=== PATIENT | female | born 1975 | race Caucasian/White ===

== ENCOUNTER 2021-04-29 12:10 | Emergency (ER) | payer OTHER ==
[~2021-04-29] VITALS: Ht 170.2 cm; Wt 80.3 kg
[~2021-04-29 12:10] MED LIST: ALBU90I INH; ALBU90OI; ALBU90OI INH; ALBU90OI6 INH; ALBU90OI61; ALBU90OI61 INH; ALPR.25 PO; AMIT25; AMOCLA250 PO; AMOX875 PO; ARIP10 PO; ARIP15; ARIP15 PO; ATOR10 PO; AZIT250 PO; AZIT500 PO; BUTASPCAF; CEPH500 PO; CETI10 PO; CIPR500 PO; CLIN300; CLIN300 PO; CLON.5; CLON1 PO; CLON2 PO; CODBUTASA PO; CRUTCH4 USE; CYCL10 PO; DIPH25; DIPH50 PO; DOCU100 PO; DOXY100 PO; ENJUVIA PO; ESCI10; ESCI10 PO; ESCI20 PO; ESTR2; ESTRADIOL; FLUCONAZOLE PO; GABA300; GABA300 PO; GABA600; GABA600 PO; GEMF600 PO; HALO1 PO; HALO5 PO; HYDACE10B PO; HYDACE5; HYDACE5 PO; HYDACE7.5; HYDACE7.5 PO; HYDGUAL120 PO; HYDHCL25; HYDMOR2 PO; HYDMOR4 PO; IBUP200; IBUP800; IBUP800 PO; INSDET100 SQ; INSLI100I; INSLI100I SC; INSU7030P; INSULANI; INSULANI SC; INSULIN LISPRO SQ; INSULISPEN SC; Januvia PO; K-Dur20 MEQ PO; KETO10 PO; LACT10SY PO; LATUDA80 MG PO; LEVSOD50; LISI5 PO; LITH300C; LITH300C PO; LITH300CA PO; LITH300ER; LITH450ER; LORA1 PO; MAGCHL64ER PO; MAGCIT300 PO; METF500 PO; METO100ER; METO100ER PO; METO50ER; NEBI10 PO; ONDA4 PO; ONDA4ODT MM; OXYACE5T PO; PRAV20 PO; PRED10 PO; PRED20 PO; PROACE100; PROM25 PO; PROP120ER PO; QUET100 PO; QUET300 PO; RAMI5; RANI150 PO; RISP3 PO; RXCYCL10 PO; RXHYDACE PO; RXHYDMOR2 PO; RXPROM25 PO; SERT50 PO; SULTRIDS PO; SUMA25; SUMA6I; TAMS.4ER PO; TOPI100 PO; TRAM50; TRAM50 PO; TRAZ150T57 PO; VALS80 PO; ZOLP10 PO; [UNRECOGNIZED DRUG - OTHER]; [UNRECOGNIZED DRUG - REMARK]
[2021-04-29 13:18] LABS: BASOPHILS ABSOLUTE AUTO 0.13 K/mm3 (0.00-0.23); BASOPHILS PERCENT AUTO 1 % (0-2); EOSINOPHILS ABSOLUTE AUTO 0.18 K/mm3 (0.00-0.68); EOSINOPHILS PERCENT AUTO 2 % (0-6); Hematocrit 38.9 % (33.0-51.0); Hemoglobin 12.6 g/dL (11.5-16.0); IMMATURE GRAN ABSOLUTE AUTO 0.48 K/mm3 (0.00-0.10); IMMATURE GRAN PERCENT AUTO 4 % (0-1); LYMPHOCYTES ABSOLUTE AUTO 2.73 K/mm3 (0.84-5.20); LYMPHOCYTES PERCENT AUTO 23 % (21-46); MONOCYTES ABSOLUTE AUTO 0.97 K/mm3 (0.16-1.47); MONOCYTES PERCENT AUTO 8 % (4-13); Mean Corpuscular HGB 25.6 pg (26.0-34.0); Mean Corpuscular HGB Conc 32.4 g/dL (31.5-36.5); Mean Corpuscular Volume 79 fL (80-100); Mean Platelet Volume 9.1 fL (9.1-12.4); NEUTROPHILS ABSOLUTE AUTO 7.47 K/mm3 (1.96-9.15); NEUTROPHILS PERCENT AUTO 63 % (41-73); Platelet Count 290 K/mm3 (150-400); Red Blood Cell Count 4.92 M/mm3 (3.80-5.20); White Blood Cell Count 11.96 K/mm3 (4.00-11.30)
[2021-04-29 13:42] LABS: Alanine Aminotransfer (ALT/SGP 26 U/L (12-78); Albumin, Blood 3.6 g/dL (3.4-5.0); Albumin/Globulin Ratio 0.9 (0.8-1.8); Alk Phos 190 U/L (50-136); Anion Gap 9 mmol/L (6-16); Aspartate Aminotrans (AST/SGOT 18 U/L (12-37); Bilirubin, Total 0.3 mg/dL (0.1-1.0); Blood Urea Nitrogen 14 mg/dL (8-24); Bun/Creatinine Ratio 17.3 (12.0-20.0); CO2, Blood 16 mmol/L (21-32); Chloride, Blood 112 mmol/L (98-108); Creatinine, Blood 0.81 mg/dL (0.40-1.00); Globulin, Blood 3.8 g/dL (2.2-4.0); Glomerular Filtration Rate >60 (60-); Glucose, Blood 260 mg/dL (70-99); Potassium, Blood 3.9 mmol/L (3.5-5.5); Sodium, Blood 137 mmol/L (136-145); Total Protein, Blood 7.4 g/dL (6.4-8.2)
[2021-04-29 13:52] LABS: Source, Urine Clean Catch
[2021-04-29 14:20] LABS: Bilirubin, Urine Neg (Neg); Blood, Urine Neg (Neg); Glucose Qualitative, Urine Neg (Neg); Ketones, Urine Neg (Neg); Leukocyte Esterase, Urine 2+ (Neg); Nitrite, Urine Neg (Neg); Protein, Urine Neg (Neg); Urobilinogen, Urine NORM (Normal); pH, Urine 6.5 (5.0-8.0)
[2021-04-29 14:37] LABS: Appearance, Urine Hazy (Clear); Color, Urine Pale Yellow (P-Yellow)
[2021-04-29 14:38] LABS: Bacteria Many /hpf; Red Blood Cells, Urine Not Seen /hpf (0-2); Squamous Epithelial Cells Few /hpf (Few); Transitional Epithelial Cells Rare /hpf (0-Rare)
[2021-04-29] MEDS ORDERED: Norco 5-325 Ta1 EACH PO (15:59)
[2021-04-29] MEDS ORDERED: Levaquin750 MG PO (15:59)
== END 2021-04-29 16:10 | disposition home or self-care (01) ==
LOC: ER 12:10
PROVIDERS: Physician Assistant
DX: N20.0 Calculus of kidney (principal); N39.0 Urinary tract infection, site not specified; I10 Essential (primary) hypertension; E11.9 Type 2 diabetes mellitus without complications; F17.210 Nicotine dependence, cigarettes, uncomplicated; Z88.6 Allergy status to analgesic agent; Z88.8 Allergy status to other drugs, medicaments and biological substances; Z79.4 Long term (current) use of insulin; Z79.899 Other long term (current) drug therapy
CPT/HCPCS: 36415; 74176; 80053; 81001; 85025; 87077; 87086; 87186; 99284-25

== ENCOUNTER 2021-08-10 13:28 | Inpatient (IN) | payer OTHER ==
[~2021-08-10] VITALS: Ht 165.1 cm; Wt 85.2 kg
[~2021-08-10 13:28] MED LIST changes: +Levaquin750 MG PO; +Norco 5-325 Ta1 EACH PO
[2021-08-10 14:24] LABS: Hematocrit 28.2 % (33.0-51.0); Mean Corpuscular HGB 25.6 pg (26.0-34.0); Mean Corpuscular HGB Conc 31.9 g/dL (31.5-36.5); Mean Corpuscular Volume 80 fL (80-100); Mean Platelet Volume 10.3 fL (9.1-12.4); Platelet Count 142 K/mm3 (150-400); RDW Coefficient Variation 14.3 % (11.7-14.2); RDW Standard Deviation 41.8 fL (35.1-46.3); Red Blood Cell Count 3.51 M/mm3 (3.80-5.20); White Blood Cell Count 11.22 K/mm3 (4.00-11.30)
[2021-08-10 14:38] LABS: Base Excess Venous -22.3 mmol/L; Bicarbonate Venous 9.3 mmol/L (24.0-30.0); PCO2 Venous 28.8 mmHg (38-42); PO2 Venous 152 mmHg (38-42); pH Blood Venous 7.06 (7.34-7.37)
[2021-08-10 14:44] LABS: Albumin, Blood 2.1 g/dL (3.4-5.0); Albumin/Globulin Ratio 0.6 (0.8-1.8); Bilirubin, Total 0.6 mg/dL (0.1-1.0); Bun/Creatinine Ratio 15.9 (12.0-20.0); Calcium, Blood 7.5 mg/dL (8.5-10.1); Creatinine, Blood 3.64 mg/dL (0.40-1.00); Globulin, Blood 3.7 g/dL (2.2-4.0); Potassium, Blood 4.4 mmol/L (3.5-5.5); Total Protein, Blood 5.8 g/dL (6.4-8.2)
[2021-08-10 14:45] LABS: BAND PERCENT MAN 40 % (0-8); BASOPHILS PERCENT MAN 0 % (0-2); EOSINOPHILS PERCENT MAN 0 % (0-6); LYMPHOCYTES % ATYPICAL MANUAL 2 % (0-0); LYMPHOCYTES PERCENT MAN 7 % (21-46); METAMYELOCYTE ABSOLUTE MAN 0.22 K/mm3 (0.00-0.00); METAMYELOCYTE PERCENT MAN 2 % (0-0); MONOCYTES ABSOLUTE MAN 0.44 K/mm3 (0.16-1.47); MONOCYTES PERCENT MAN 4 % (4-13); NEUTROPHILS ABSOLUTE MAN 9.53 K/mm3 (1.96-9.15); SEG NEUTROPHILS PERCENT MAN 45 % (41-73); TOTAL CELLS COUNTED 100
[2021-08-10 15:22] LABS: Thyroid Stimulating Hormone 0.485 uIU/mL (0.360-4.800)
[2021-08-10 15:47] LABS: Source, Urine Catheter
[2021-08-10 15:56] LABS: Bilirubin, Urine Neg (Neg); Blood, Urine 2+ (Neg); Color, Urine Amber (P-Yellow); Glucose Qualitative, Urine 3+ (Neg); Ketones, Urine Neg (Neg); Leukocyte Esterase, Urine 1+ (Neg); Nitrite, Urine Neg (Neg); Protein, Urine 3+ (Neg); Specific Gravity, Urine 1.015 (1.003-1.022); Urobilinogen, Urine NORM (Normal)
[2021-08-10 16:21] LABS: SARS-Cov-2 (COVID-19) PCR, MMC POSITIVE (NEGATIVE)
[2021-08-10 16:23] LABS: U Amphetamine Screen DETECTED; U Barbituate Screen Not Detected; U Benzodiazapine Screen Not Detected; U Buprenorphine Screen Not Detected; U Cannabinoids Screen Not Detected; U Cocaine Screen Not Detected; U Methadone Screen Not Detected; U Methamphetamine Screen DETECTED; U Opiates Screen Not Detected; U Oxycodone Screen Not Detected; U Phencyclidine Screen Not Detected; U Propoxyphene Screen Not Detected
[2021-08-10 16:30] LABS: Appearance, Urine Clear (Clear)
[2021-08-10 16:32] LABS: Bacteria Many /hpf; Red Blood Cells, Urine Rare /hpf (0-2); Squamous Epithelial Cells Few /hpf (Few)
[2021-08-10] MEDS ORDERED: Estrace Vagin42.5 GM VAG (18:29)
[2021-08-10] MEDS ORDERED: OLAN10A PO (19:16)
[2021-08-10] MEDS ORDERED: OMEP20ER PO (19:17)
[2021-08-10] MEDS ORDERED: BENZ1 PO (19:18)
[2021-08-10 20:26] LABS: Bun/Creatinine Ratio 17.8 (12.0-20.0); Calcium, Blood 7.1 mg/dL (8.5-10.1); Creatinine, Blood 3.37 mg/dL (0.40-1.00)
[2021-08-11 02:21] LABS: Bun/Creatinine Ratio 16.2 (12.0-20.0); Creatinine, Blood 3.77 mg/dL (0.40-1.00); Potassium, Blood 3.8 mmol/L (3.5-5.5)
--- NOTE | 2021-08-11 06:33 | NUR ---
END OF SHIFT SUMMARY: PATIENT TO 234 AT 2130. APPEARED THAT SHE COULD BE WAKING UP WHEN ROLLING INTO ROOM SHE WAS TRYING TO PULL AT HER CENTRAL LINE. PATIENT HAS BEEN SLEEPING AND NOT RESPONSIVE TO STIMULI. SHE WAS MOVING HEAD AWAY WHEN I TOUCHED HER FACE TO PAIN ATLEAST BUT IS NO LONGER DOING SO. NO RESPONSE TO DEEP SUCTIONING EITHER. PUPILS ARE 4/EQUAL/BRISK. PATIENT WAS ON 10 ON LEVO ON ADMISSION BUT IS NOW DOWN TO 5. PATIENT ALSO HAD GLUCOSE>300 SO SHE WAS STARTED ON AN INSULIN DRUP IN THE ED WHICH IS RUNNING AT 11 UNITS/HR. SHE HAS REMAINED IN NSR IN THE 70S. SHE STARTED ON 2L ON ADMISSION BUT HAS VERY VERY SLOWLY REQUIRED MORE O2. SHE WAS 5L FOR SEVERAL HOURS BUT THEN SUDDENLY DIPPED INTO 78-LOW 80S AND RT WAS CALLED. CECILIA-RT PLACED HER ON BIPAP 14/7 AND O2 IS NOW 98%. 750 BRENDEN CLEAR OUTPUT FROM RODRÍGUEZ. NO BMS. Q6 LABS ORDERED AND BEING SENT. SPOKE WITH JUAN-ENVIRONMENTAL MANAGEMENT SPECIALIST AND EXPRESSED MY CONCERNS ABOUT HER MENTATION AND LACK OF IMPROVEMENT SINCE BEING ADMITTED TO UNIT. PLAN IS FOR AN ABG THIS MORNING AND A HEAD CT THAT THEY WERE NOT ABLE TO COMPLETE YESTERDAY.
[2021-08-11 07:11] LABS: Hematocrit 27.7 % (33.0-51.0); Hemoglobin 9.1 g/dL (11.5-16.0); Mean Corpuscular HGB 25.9 pg (26.0-34.0); Mean Corpuscular HGB Conc 32.9 g/dL (31.5-36.5); Mean Corpuscular Volume 79 fL (80-100); Mean Platelet Volume 10.1 fL (9.1-12.4); Platelet Count 172 K/mm3 (150-400); RDW Coefficient Variation 14.6 % (11.7-14.2); RDW Standard Deviation 42.4 fL (35.1-46.3); Red Blood Cell Count 3.52 M/mm3 (3.80-5.20); White Blood Cell Count 12.88 K/mm3 (4.00-11.30)
[2021-08-11 07:20] LABS: Albumin, Blood 1.9 g/dL (3.4-5.0); Albumin/Globulin Ratio 0.5 (0.8-1.8); Bilirubin, Total 0.7 mg/dL (0.1-1.0); Bun/Creatinine Ratio 16.1 (12.0-20.0); Calcium, Blood 7.5 mg/dL (8.5-10.1); Creatinine, Blood 4.11 mg/dL (0.40-1.00); Globulin, Blood 3.9 g/dL (2.2-4.0); Potassium, Blood 4.2 mmol/L (3.5-5.5); Total Protein, Blood 5.8 g/dL (6.4-8.2)
[2021-08-11 07:38] LABS: BAND PERCENT MAN 15 % (0-8); BASOPHILS PERCENT MAN 0 % (0-2); EOSINOPHILS PERCENT MAN 0 % (0-6); LYMPHOCYTES ABSOLUTE MAN 0.25 K/mm3 (0.84-5.20); LYMPHOCYTES PERCENT MAN 2 % (21-46); METAMYELOCYTE ABSOLUTE MAN 0.12 K/mm3 (0.00-0.00); METAMYELOCYTE PERCENT MAN 1 % (0-0); MONOCYTES PERCENT MAN 0 % (4-13); MYELOCYTE ABSOLUTE MAN 0.38 K/mm3 (0.00-0.00); MYELOCYTE PERCENT MAN 3 % (0-0); SEG NEUTROPHILS PERCENT MAN 79 % (41-73); TOTAL CELLS COUNTED 100
--- NOTE | 2021-08-11 07:50 | NUR ---
ASSUMED CARE: PT RESTING IN BED ON BIPAP AT 14/7. BILATERAL WRIST RESTRAINTS IN PLACE. PT IS OBTUNDED AND NOT RESPONDING TO NOXIOUS STIMULI. CALL FROM CT STAFF TO DETERMINE IF WE CAN TAKE PT FOR TEST. CALL TO RT SINCE PT HAD BEEN PLACED ON BIPAP AT APPROXIMATELY 0600. RT SUGGESTS VBG FIRST TO DETERMINE WHICH WOULD BE MOST NEEDED. CALL TO WHO DECIDED ABG WOULD BE BETTER SINCE PT'S MENTAL STATUS WORSENED OVERNIGHT. RT AT BEDSIDE PERFORMING THIS AT THIS TIME.
[2021-08-11 08:23] LABS: PCO2 Arterial 38.5 mmHg (35-45); pH Blood Arterial 7.08 (7.35-7.45)
--- NOTE | 2021-08-11 10:40 | NUR ---
DR LEDBETTER CAME TO SEE PT AND IS AWARE OF ABG RESULTS. IS CONCERNED THAT PT WILL NEED TO BE INTUBATED AND FEELS PT IS TOO UNSTABLE FOR CT AT THIS TIME. CALL TO DR STEVENS WHO CAME AND EXAMINED PT AND AGREES THAT PT IS TOO UNSTABLE FOR CT AND PLANS TO DO CT AFTER INTUBATION. PT TRANSFERRED TO ICU 6 FOR CLOSER MONITORING AND INTUBATION. ATTEMPTED TO CALL PT'S SEAN TO GIVE HIM UPDATE BUT MAILBOX WAS FULL. INSULIN GTTS AND LEVOPHED RUNNING AT 10MCG/KG. PT SWITCHED FROM BIPAP TO CPAP WITH O2 AT 88% ON THIS.
--- NOTE | 2021-08-11 11:24 | NUR ---
GOT IN TOUCH WITH PT'S AND GAVE HIM AN UPDATE OF HER STATUS. HE IS AWARE THAT SHE IS VERY SICK AND IN INTENSIVE CARE UNIT, LIKELY BEING INTUBATED AT THIS TIME. MESSAGE LEFT FOR PRIMARY NURSE LETTING HER KNOW THAT UPDATE WAS GIVEN.
[2021-08-11 13:00] LABS: Bun/Creatinine Ratio 15.9 (12.0-20.0); Creatinine, Blood 4.28 mg/dL (0.40-1.00); Potassium, Blood 4.6 mmol/L (3.5-5.5)
--- NOTE | 2021-08-11 13:00 | NUR ---
TRANSFER TO ICU / INTUBATION: REPORT RECEIVED FROM MARTHA Simmons RN. PT ARRIVED TO ICU-06 AT APPROX 1030. PT TX TO ICU BED W/ SLIDER SHEET & 5 STAFF ASSIST. ON ARRIVAL, THE PT IS NOTED TO BE OBTUNDED, UNRESPONSIVE TO STIMULI. CPAP IN PLACE W/ RESPIRATIONS SHALLOW, DIFFICULTY OBTAINING ACCURATE SPO2 READING. ST W/ HR 110s, PT SEVERELY HYPOTENSIVE W/ SBP 50s AFTER TRANSFER, LEVOPHED TITRATED TO MAX DOSE & VASOPRESSIN STARTED W/ IMPROVEMENT NOTED TO BP - SEE FLOWSHEET FOR TITRATIONS. SPO2 READING 80-90% AT THIS TIME, DR STEVENS & RANDY Vincent, RT, AT BEDSIDE W/ THIS RN FOR INTUBATION. 1104 - 20 MG ETOMIDATE IVP 1106 - 80 MG ROCURONIUM IVP 1108 - 8.0 ETT PLACED USING GLIDESCOPE. NOTED TO BE 26.0 CM ATT. + COLOR CHANGE & BILATERAL BREATH SOUNDS AUSCULTATED. 1109 - VENT SETTINGS: AC/VC 26/340/12/100% W/ O2 SATS IMPROVING - SEE VS. 1114 - OGT PLACED. CXR COMPLETED, ETT & OGT POSITIONING HAS BEEN VERIFIED BY DR STEVENS. PLAN IS FOR PT TO HAVE CT HEAD ONCE MORE STABLE. INSULIN DRIP INFUSING - TITRATION IN FLOWSHEET. PROPOFOL STARTED FOR SEDATION.
[2021-08-11 13:54] LABS: Base Excess Venous -18.5 mmol/L; Bicarbonate Venous 11.1 mmol/L (24.0-30.0); PCO2 Venous 48.8 mmHg (38-42); PO2 Venous 194 mmHg (38-42); pH Blood Venous 7.02 (7.34-7.37)
[2021-08-11 16:09] LABS: Appearance, Urine Clear (Clear); Bilirubin, Urine Neg (Neg); Blood, Urine 4+ (Neg); Color, Urine Yellow (P-Yellow); Glucose Qualitative, Urine Neg (Neg); Ketones, Urine Neg (Neg); Leukocyte Esterase, Urine 1+ (Neg); Nitrite, Urine Neg (Neg); Protein, Urine 2+ (Neg); Specific Gravity, Urine 1.015 (1.003-1.022); Urobilinogen, Urine NORM (Normal)
[2021-08-11 16:37] LABS: Amorphous Light (0-Heavy)
[2021-08-11 16:38] LABS: Bacteria Mod /hpf; Hyaline Casts 0-2 /lpf (0-2); Renal Epithelial Rare /hpf (0-Rare); Squamous Epithelial Cells Few /hpf (Few)
[2021-08-11 17:51] LABS: Albumin, Blood 1.7 g/dL (3.4-5.0); Anion Gap 13 mmol/L (6-16); Blood Urea Nitrogen 69 mg/dL (8-24); Bun/Creatinine Ratio 15.9 (12.0-20.0); CO2, Blood 15 mmol/L (21-32); Calcium, Blood 6.9 mg/dL (8.5-10.1); Chloride, Blood 110 mmol/L (98-108); Creatinine, Blood 4.35 mg/dL (0.40-1.00); Glomerular Filtration Rate 11 (60-); Glucose, Blood 179 mg/dL (70-99); Phosphorus, Blood 5.3 mg/dL (2.5-4.9); Potassium, Blood 4.1 mmol/L (3.5-5.5); Sodium, Blood 138 mmol/L (136-145)
--- NOTE | 2021-08-11 18:24 | NUR ---
SHIFT SUMMARY: NO ACUTE CHANGES SINCE PRIOR UPDATES. SEDATION VIA PROPOFOL HAS BEEN PLACED ON STANDBY AT APPROX 1800 TO BETTER ASSESS MENTATION. THE PT REMAINS OBTUNDED W/ NO RESPONSE TO PAINFUL STIMULI. LS DIM IN BASES, VENT SETTINGS: AC/VC 26/340/12/75% W/ O2 SATS > 95%. MONITOR SHOWS SR W/ HR 80s, HYPOTENSIVE W/ LEVOPHED INFUSING AT 8 MCG/MIN & VASOPRESSIN INFUSING PER EMAR. OGT IN PLACE W/ NO OUTPUT NOTED TO LIS AFTER 4 HRS, OGT NOW CLAMPED. RODRÍGUEZ PATENT/ DRAINING YELLOW URINE. SKIN CONDITION OVERALL INTACT, Q2H REPOSITIONING TO MAINTAIN SKIN INTEGRITY. WILL CONTINUE TO MONITOR & REPORT OFF TO ONCOMING RN.
--- NOTE | 2021-08-11 19:30 | NUR ---
ASSESSMENT/ASSUMED CARE PT INTUBATED AND ON [facility] VENT. LUNGS DECREASED T/O. VENT SETTINGS AC/VC 26/340/12/75%. SPO2 98-100% DECREASED FIO2 TO 70%. HEART RATE REGULAR, BP STABLE ON LEVOPHED AT 8 MCQ/MIN AND VASOPRESSIN AT 0.04 UNIT/MIN VIA CENTRAL LINE TO RIGHT GROIN. BT+ABD SOFT. OG CLAMPED. RODRÍGUEZ CATH PATENT DRAINING SMALL AMT YELLOW URINE. PT ON LEVOPHED, VASOPRESSIN, NA BICARB AT 100 ML/HR, INSULIN AT 4 UNITS/HR, AND NS AT 10 ML/HR. BILAT SOFT WRIST RESTRAINTS.
--- NOTE | 2021-08-11 19:57 | NUR ---
review of pt history and needw [facility]. will follow for plan of care..
--- NOTE | 2021-08-11 20:43 | NUR ---
DR STEVENS UP DATE GIVEN TO DR STEVENS REGARDING URINE OUTPUT AND BLOOD GLUCOSE. RECEIVED ORDERS FOR LONG ACTING INSULIN THAN TURN INSULIN GTT OFF AN HOUR AFTER GIVING. PROPOFOL CONT ON STANDBY.
[2021-08-11 21:44] LABS: PCO2 Arterial 39.3 mmHg (35-45); PO2 Arterial 83.4 mmHg (80-100); pH Blood Arterial 7.16 (7.35-7.45)
--- NOTE | 2021-08-11 21:49 | NUR ---
CRITICAL ABG CALLED CRITICAL ABG PH 7.[address] DOUGLAS. NO NEW ORDERS. IMPROVED FROM PREVIOUS ABG.
--- NOTE | 2021-08-11 22:30 | NUR ---
INSULIN GTT STOPPED INSULIN GTT ONE HOUR AFTER GIVING LONG ACTING INSULIN. WILL RECHECK BLOOD GLUCOSE AT 2400.
--- NOTE | 2021-08-12 00:56 | NUR ---
FEVER TEMP 101.3, BLANKETS REMOVED AND TEMP IN ROOM DECREASED. CALL TO DR BROWN, ORDER RECEIVED FOR TYLENOL.
[2021-08-12 03:44] LABS: Hematocrit 25.7 % (33.0-51.0); Hemoglobin 8.6 g/dL (11.5-16.0); Mean Corpuscular HGB 25.6 pg (26.0-34.0); Mean Corpuscular HGB Conc 33.5 g/dL (31.5-36.5); Mean Corpuscular Volume 77 fL (80-100); Mean Platelet Volume 10.3 fL (9.1-12.4); NRBC ABSOLUTE 0.06 K/mm3 (0.00-0.02); NRBC Auto 0.4 /100 WBC (0.0-0.2); Platelet Count 158 K/mm3 (150-400); RDW Standard Deviation 41.7 fL (35.1-46.3); Red Blood Cell Count 3.36 M/mm3 (3.80-5.20); White Blood Cell Count 16.21 K/mm3 (4.00-11.30)
[2021-08-12 04:04] LABS: Calcium, Blood 6.2 mg/dL (8.5-10.1); Creatinine, Blood 4.3 mg/dL (0.40-1.00); Magnesium, Blood 1.6 mg/dL (1.6-2.4); Phosphorus, Blood 6.7 mg/dL (2.5-4.9); Potassium, Blood 4.4 mmol/L (3.5-5.5)
[2021-08-12 04:10] LABS: BAND PERCENT MAN 6 % (0-8); BASOPHILS PERCENT MAN 0 % (0-2); EOSINOPHILS PERCENT MAN 0 % (0-6); LYMPHOCYTES ABSOLUTE MAN 0.97 K/mm3 (0.84-5.20); LYMPHOCYTES PERCENT MAN 6 % (21-46); MONOCYTES ABSOLUTE MAN 0.64 K/mm3 (0.16-1.47); MONOCYTES PERCENT MAN 4 % (4-13); MYELOCYTE ABSOLUTE MAN 0.32 K/mm3 (0.00-0.00); MYELOCYTE PERCENT MAN 2 % (0-0); NEUTROPHILS ABSOLUTE MAN 14.26 K/mm3 (1.96-9.15); SEG NEUTROPHILS PERCENT MAN 82 % (41-73); TOTAL CELLS COUNTED 100
--- NOTE | 2021-08-12 04:52 | NUR ---
LABS CALL TO DR BROWN REGARDING BLOOD GLUCOSE 344. ORDER RECEIVED FOR MEDIUM SLIDIING SCALE INSULIN WITH HUMALOG AND 10 UNITS LANTUS NOW ONE TIME DOSE. PT ON NA BICAB GTT WITH DEXTROSE AND LEVOPHED IN DEXTROSE.
--- NOTE | 2021-08-12 06:11 | NUR ---
SHIFT SUMMARY PT CONT INTUBATED AND ON [facility] VENT. LUNGS DECREASED. FIO2 DECREASED DURING THE NIGHT. CURRENT VENT SETTINGS AC/VC 26/340/12/70%. PT ONLY RESPONDING TO PAINFUL STIMULI BY PULLING AWAY WITH ORAL CARE AND TURNING BY GRIMICING AND MOVING TONGUE. NOT FOLLOWING INSTRUCTIONS OR MOVING EXT. TEMP DURING THE NIGHT UP TO 101.7, MED WITH TYLENOL, BLANKETS REMOVED, TEMP IN ROOM DECREASED, AND ICE PACKS UNDER ARMS, BEHIND NECK AND IN GROIN. HEART RATE REGULAR. LEVOPHED TITRATED DOWN FROM 8 MCQ/MIN TO 6 MCQ/MIN TO KEEP MAP GREATER THAN 65. CENTRAL LINE TO RIGHT GROIN DRSG CHANGED, SITE CLEAR. PT ON NA BICARB AT 100 ML/HR, LEVOPHED AT 6 MCQ/MIN, VASOPRESSIN 0.04 UNITS/HR AND NS AT 10 ML/HR. INSULIN GTT STOPPED AFTER LONG ACTING INSULIN GIVEN. THIS AM BLOOD GLUCOSE 344 WITH LABS, CALLED DR BROWN. ADDITIONAL 10 UNITS LONG ACTING INSULIN GIVEN AND PT STARTED ON SLIDING SCALE INSULIN. REPORT TO ON COMING NURSE
--- NOTE | 2021-08-12 07:50 | NUR ---
ASSUMED CARE: REPORT RECEIVED FROM ANDREA Ayala RN & ANASTACIO Medina RN. ASSUMED CARE OF THIS PT AT APPROX 0700. SLIGHT GRIMACE TO ORAL CARE & PAINFUL STIMULI, GAG/ COUGH PRESENT. LS COARSE T/O, DIM IN BASES. VENT SETTINGS: AC/VC 26/340/12/60% W/ O2 SATS > 95%. MONITOR SHOWS SR W/ HR 70s, LEVOPHED & VASOPRESSIN INFUSING FOR HYPOTENSION - SEE FLOWSHEET FOR TITRATION. OGT IN PLACE, CLAMPED. RODRÍGUEZ PATENT/ DRAINING SCANT AMNTS YELLOW URINE, DIURESIS PER EMAR. SKIN CONDITION OVERALL INTACT, Q2H REPOSITIONING TO MAINTAIN SKIN INTEGRITY. WILL CONTINUE TO MONITOR & UPDATE NEEDED.
--- NOTE | 2021-08-12 09:25 | NUR ---
DR STEVENS: PROVIDER AT BEDSIDE TO EVAL PT THIS AM. PEEP DECREASED FROM 12.0 TO 8.0, FIO2 DECREASED TO 50%. CALCIUM REPLETION ORDERED. DISCUSSED DR MCGEE's ORDER FOR LASIX ADMIN THIS AM. NO OTHER ORDERS AT THIS TIME.
[2021-08-12 09:26] LABS: Base Excess Venous -13.8 mmol/L; PCO2 Venous 41.2 mmHg (38-42); pH Blood Venous 7.17 (7.34-7.37)
[2021-08-12 09:52] LABS: Bun/Creatinine Ratio 16.5 (12.0-20.0); Calcium, Blood 6.3 mg/dL (8.5-10.1); Creatinine, Blood 4.31 mg/dL (0.40-1.00); Potassium, Blood 3.9 mmol/L (3.5-5.5)
--- NOTE | 2021-08-12 12:41 | NUR ---
TUBE FEEDING: PIVOT 1.5 INITIATED THROUGH OGT AT 20 ML/HR W/ 30 ML H2O FLUSH Q4H PER DIETARY ORDERS. TF MAY BE ADVANCED TO 30 ML/HR AT APPROX 2000 TONIGHT, PUMP SET TO ALARM AT THAT TIME.
[2021-08-12 17:45] LABS: Glucose, Blood 478 mg/dL (70-99)
--- NOTE | 2021-08-12 18:39 | NUR ---
SHIFT SUMMARY: NO ACUTE CHANGES SINCE PRIOR UPDATES. THE PT IS NOT SEDATED. SHE IS SLIGHTLY MORE RESPONSIVE THIS EVENING, NOTED TO BE MOVING LEGS/ GRIMACING DURING ADLs OR PAINFUL STIMULUS. NOT PURPOSEFUL, NO EYE OPENING. LS COARSE/ DIM T/O, VENT SETTINGS: AC/VC 26/340/8/60% W/ O2 SATS > 90%. MONITOR SHOWS SR W/ HR 60-80s. VASOPRESSIN OFF THIS AFTERNOON, LEVOPHED CONTINUES INFUSING AT 4 MCG/MIN FOR HYPOTENSION. OGT IN PLACE W/ TUBE FEEDS INFUSING AT 20 ML/HR, MAY BE INCREASED TO GOAL RATE OF 30 ML/HR AT APPROX 2000, NO RESIDUALS. TEMP RODRÍGUEZ PATENT/ DRAINING DARK YELLOW URINE W/ DIURESIS PER EMAR - SEE I&O. SKIN CONDITION OVERALL CDI, Q2H REPOSITIONING TO MAINTAIN SKIN INTEGRITY. WILL CONTINUE TO MONITOR & REPORT OFF TO ONCOMING RN.
--- NOTE | 2021-08-12 19:00 | NUR ---
ASSUMED CARE ASSUMED CARE OF PATIENT. REMAINS INTUBATED- AC/VC 26/340/PEEP 8, FIO2 60%. BILATERAL SOFT WRIST RESTRAINTS IN PLACE. OG WITH PIVOT 1.5 AT 20CC/HR (GOAL IS 30CC/HR). MINIMAL SPONTANEOUS MOVEMENT NOTED OF HEAD. NO OTHER MOVEMENT NOTED AT THIS TIME. RODRÍGUEZ PATENT AND DRAINING TO GRAVITY. D5 WITH 150mEq OF SODIUM BICARB INFUSING AT 100CC/HR. LEVOPHED INFUSING AT 4MCG/MIN TO MAINTAIN MAP >65. MONITOR SHOWS NSR, RATE 70s.
[2021-08-12 21:40] LABS: Glucose, Blood 499 mg/dL (70-99)
[2021-08-13 04:18] LABS: Hematocrit 22.8 % (33.0-51.0); Hemoglobin 7.9 g/dL (11.5-16.0); Mean Corpuscular HGB 25.8 pg (26.0-34.0); Mean Corpuscular HGB Conc 34.6 g/dL (31.5-36.5); Mean Corpuscular Volume 75 fL (80-100); Mean Platelet Volume 10.4 fL (9.1-12.4); NRBC ABSOLUTE 0.08 K/mm3 (0.00-0.02); NRBC Auto 0.5 /100 WBC (0.0-0.2); Platelet Count 133 K/mm3 (150-400); RDW Standard Deviation 40.8 fL (35.1-46.3); Red Blood Cell Count 3.06 M/mm3 (3.80-5.20); White Blood Cell Count 15.97 K/mm3 (4.00-11.30)
[2021-08-13 04:42] LABS: BAND PERCENT MAN 6 % (0-8); BASOPHILS PERCENT MAN 0 % (0-2); EOSINOPHILS PERCENT MAN 0 % (0-6); LYMPHOCYTES ABSOLUTE MAN 0.95 K/mm3 (0.84-5.20); LYMPHOCYTES PERCENT MAN 6 % (21-46); METAMYELOCYTE ABSOLUTE MAN 0.15 K/mm3 (0.00-0.00); METAMYELOCYTE PERCENT MAN 1 % (0-0); MONOCYTES ABSOLUTE MAN 0.31 K/mm3 (0.16-1.47); MONOCYTES PERCENT MAN 2 % (4-13); MYELOCYTE ABSOLUTE MAN 0.47 K/mm3 (0.00-0.00); MYELOCYTE PERCENT MAN 3 % (0-0); NEUTROPHILS ABSOLUTE MAN 14.05 K/mm3 (1.96-9.15); SEG NEUTROPHILS PERCENT MAN 82 % (41-73); TOTAL CELLS COUNTED 100
[2021-08-13 04:48] LABS: Magnesium, Blood 1.8 mg/dL (1.6-2.4)
[2021-08-13 04:52] LABS: Anion Gap 15 mmol/L (6-16); Blood Urea Nitrogen 81 mg/dL (8-24); CO2, Blood 21 mmol/L (21-32); Calcium, Blood 5.5 mg/dL (8.5-10.1); Chloride, Blood 99 mmol/L (98-108); Creatinine, Blood 3.85 mg/dL (0.40-1.00); Glomerular Filtration Rate 13 (60-); Glucose, Blood 485 mg/dL (70-99); Phosphorus, Blood 6.1 mg/dL (2.5-4.9); Sodium, Blood 135 mmol/L (136-145); Triglycerides 333 mg/dL (30-160)
--- NOTE | 2021-08-13 06:33 | NUR ---
SHIFT SUMMARY NO ACUTE CHANGES. PROPOFOL STARTED DURING NOC FOR VENT TOLERANCE- NOW INFUSING AT 35MCG/KG/MIN. MINIMAL SPONTANEOUS MOVEMENT NOTED. NOT FOLLOWING ANY COMMANDS. VENT SETTINGS: AC/VC 26/340/PEEP 8. FIO2 NOW AT 55%. RR 26-36. LEVOPHED HAS BEEN OFF T/O MOST OF SHIFT. TMAX 100.2F. OG WITH PIVOT 1.5 AT GOAL RATE OF 30CC/HR. RESIDUALS 10-20cc. RODRÍGUEZ PATENT AND DRAINING TO GRAVITY. BICARB GTT DC'D THIS AM PER DR. MCGEE. KCL IVPB AND CALCIUM CHLORIDE IVPB STARTED PER ORDER. CBGs HAVE BEEN CONSISTENTLY HIGH T/O SHIFT- HIGH SLIDING SCALE Q4H. WILL REPORT TO ONCOMING RN WHEN AVAILABLE.
--- NOTE | 2021-08-13 08:00 | NUR ---
DR. SOTOMAYOR UPDATED ON PATIENT STATUS. INFORMED THAT PATIENT HAD TMAX OF 100.2 DEGREES FAHRENHEIT. INFORMED THAT HEMOGLOBIN DECREASED TO 7.9 FROM 8.6 THIS AM. INFORMED THAT POTASSIUM 3.0 THIS AM AND PATIENT RECEIVING 40 MEQ KCL REPLACEMENT. INFORMED THAT CALCIUM 5.5 AND RECEIVED 2 G CALCIUM THIS AM. INFORMED THAT KIDNEY LABS WORSENING. INFORMED THAT GLUCOSE IN THE 400S, BUT THAT BICARB IN DEXTROSE DC'D THIS AM BY DR. MCGEE. INFORMED THAT PROPOFOL INITIATED ON PATIENT ON DIRECTORY OPERATOR NOT BECAUSE PATIENT WAKING UP BUT FOR STACKING BREATHS AND INCREASED RR. NO ORDERS OBTAINED AT THIS TIME.
--- NOTE | 2021-08-13 09:05 | NUR ---
INITIAL ASSESSMENT PATIENT INTUBATED AND ON SEDATION. PATIENT UNRESPONSIVE. PATIENT PLACED ON PROPOFOL ON OTOLARYNGOLOGY REP FOR BREATH STACKING AND INCREASED RR. PUPILS 5+ AND REACT TO LIGHT. PUPILS FIXED IN A DOWNWARD GAZE. PATIENT AFEBRILE. NO SIGNS OF PAIN NOTED. PATIENT ON AC/VC 26, 340, PEEP 8 AND 55% FIO2. LUNGS COARSE THROUGHOUT. ETT 8.0 AND 26 AT THE TEETH. RR 20S TO 30S. PATIENT IN SR, HR IN THE 60S. SBP 70S TO 90S. LEVOPHED ON SB WHEN BEGAN SHIFT. LEVOPHED NOW AT 3 MCG/ MINUTE. 1+ EDEMA NOTED TO L HAND. ABD SOFT WITH NORMOACTIVE BS NOTED. PIVOT 1.5 INFUSING AT GOAL RATE OF 30 MLS/ HOUR AND 30 ML WATER FLUSH Q4H. RESIDUAL OF 35 MLS OBTAINED AND REINSTILLED THIS AM. DATE OF LAST BM UNKNOWN. PRN MOM GIVEN. RODRÍGUEZ DRAINING DARK YELLOW COLORED URINE. SKIN OVERALL DRY AND INTACT. SOLES OF FEET DIRTY AND CALLUSED. PROPOFOL INFUSING AT 30 MCG/ KG/ MINUTE, NS TKO. PATIENT RECEIVING SCHEDULED UNASYN. BLOOD SUGAR 478 THIS AM; COVERAGE GIVEN. BICARB IN DEXTROSE DC'D THIS AM. Q4 BLOOD SUGAR CHECKS. BED LOW. WILL CONTINUE TO MONITOR PATIENT FREQUENTLY THROUGHOUT SHIFT.
[2021-08-13 13:44] LABS: Albumin, Blood 1.6 g/dL (3.4-5.0); Anion Gap 15 mmol/L (6-16); Blood Urea Nitrogen 84 mg/dL (8-24); Bun/Creatinine Ratio 22.4 (12.0-20.0); CO2, Blood 22 mmol/L (21-32); Calcium, Blood 6.2 mg/dL (8.5-10.1); Chloride, Blood 99 mmol/L (98-108); Creatinine, Blood 3.75 mg/dL (0.40-1.00); Glomerular Filtration Rate 13 (60-); Glucose, Blood 538 mg/dL (70-99); Phosphorus, Blood 5.1 mg/dL (2.5-4.9); Potassium, Blood 3.1 mmol/L (3.5-5.5); Sodium, Blood 136 mmol/L (136-145)
--- NOTE | 2021-08-13 14:00 | NUR ---
PATIENT AFEBRILE. PROPOFOL ON SB FOR SEDATION VACATION. HR IN THE 60S. SBP IN THE LOW 100S. LEVOPHED ON SB AT THIS TIME. PATIENT ON AC 26, TV 340, PEEP 8 AND 50% FIO2. RR IN THE 20S. LUNGS COARSE WITH RHONCHI THROUGHOUT. PIVOT 1.5 INFUSING AT NEW GOAL RATE OF 25 MLS/ HOUR. BLOOD SUGAR 538. INSULIN DRIP STARTED AT 5 UNITS/ HOUR. PATIENT APPEARS WITHOUT PAIN OR DISTRESS AT THIS TIME. NO OTHER ACUTE CHANGES TO NOTE ON AT THIS TIME. WILL CONTINUE TO MONITOR.
[2021-08-13 15:45] LABS: Glucose, Blood 525 mg/dL (70-99)
--- NOTE | 2021-08-13 16:10 | NUR ---
PATIENT AFEBRILE. PROPOFOL REMAINS ON SB. PATIENT IS NOT RESPONSIVE. TEMP OF 99.1 DEGREES FAHRENHEIT. HR IN THE 60S. SBP 120S TO 130S. LEVOPHED REMAINS OFF. INSULIN DRIP AT 10 UNITS/ HOUR. FIO2 AT 40%. NO OTHER ACUTE CHANGES AT THIS TIME. WILL CONTINUE TO MONITOR.
--- NOTE | 2021-08-13 18:44 | NUR ---
SHIFT SUMMARY PATIENT REMAINED INTUBATED. PATIENT ON PROPOFOL AT BEGINNING OF SHIFT AT 30 MCG/ KG/ MINUTE. PATIENT PLACED ON SB AROUND 1330. NEURO STATUS HAS REMAINED UNCHANGED. PATIENT CONTINUES TO BE UNRESPONSIVE. PUPILS CONTINUE TO REACT TO LIGHT. PUPILS GAZING STRAIGHT AHEAD WHEN EYELIDS OPENED BUT THEN ABRUPTLY TURN TO A DOWNWARD GAZE. PATIENT HAD TMAX OF 99.6 DEGREES FAHRENHEIT. LUNGS REMAINED COARSE WITH RHONCHI. VENT SETTINGS 26, TV 340, PEEP 8 AND FIO2 HAS BEEN DECREASED FROM 55% TO 40% FIO2. PATIENT REMAINED IN SR, HR 60S TO 70S. SBP 70S TO 130S. LEVOPHED ON SB AT THIS TIME AND AT MAX WAS AT 3 MCG/ MINUTE. TF GOAL DECREASED FROM 30 TO 25 MLS/ HOUR. NO BM THIS SHIFT. PRN MOM GIVEN THIS SHIFT. RODRÍGUEZ DRAINED 1000 MLS OF DARK YELLOW COLORED URINE. NO CHANGES TO SKIN. PATIENT REPOSITIONED Q2H. PROPOFOL REMAINS AT SB. LEVOPHED AT SB. NS TKO. BLOOD SUGARS INCREASED TO 538 THIS SHIFT. INSULIN DRIP STARTED AND IS NOW INFUSING AT 14 UNITS/ HOUR. LAST BLOOD SUGAR 435. PATIENT RECEIVED TOTAL OF 120 MEQ KCL PT AND 40 MEQ KCL IV FOR POTASSIUM OF 3.0 AND 3.1 THIS SHIFT. PATIENT RECEIVED 2 G OF CALCIUM FOR LEVEL OF 5.5 THIS AM. PATIENT RECEIVED PARTIAL BATH THIS SHIFT. PATIENT APPEARS COMFORTABLE AT THIS TIME. REPORT WILL BE GIVEN TO [facility] BACKER UP NURSE SHORTLY.
[2021-08-14 04:08] LABS: Hematocrit 25.1 % (33.0-51.0); Hemoglobin 8.6 g/dL (11.5-16.0); Mean Corpuscular HGB 25.5 pg (26.0-34.0); Mean Corpuscular HGB Conc 34.3 g/dL (31.5-36.5); Mean Corpuscular Volume 75 fL (80-100); Mean Platelet Volume 10.3 fL (9.1-12.4); NRBC ABSOLUTE 0.11 K/mm3 (0.00-0.02); NRBC Auto 0.5 /100 WBC (0.0-0.2); Platelet Count 134 K/mm3 (150-400); Red Blood Cell Count 3.37 M/mm3 (3.80-5.20); White Blood Cell Count 21.31 K/mm3 (4.00-11.30)
[2021-08-14 04:35] LABS: Bun/Creatinine Ratio 26.5 (12.0-20.0); Calcium, Blood 6.2 mg/dL (8.5-10.1); Creatinine, Blood 3.36 mg/dL (0.40-1.00); Magnesium, Blood 2.1 mg/dL (1.6-2.4); Phosphorus, Blood 4.5 mg/dL (2.5-4.9); Potassium, Blood 3.5 mmol/L (3.5-5.5)
[2021-08-14 04:57] LABS: BAND PERCENT MAN 1 % (0-8); BASOPHILS PERCENT MAN 0 % (0-2); EOSINOPHILS PERCENT MAN 0 % (0-6); LYMPHOCYTES ABSOLUTE MAN 0.42 K/mm3 (0.84-5.20); LYMPHOCYTES PERCENT MAN 2 % (21-46); METAMYELOCYTE ABSOLUTE MAN 0.21 K/mm3 (0.00-0.00); METAMYELOCYTE PERCENT MAN 1 % (0-0); MONOCYTES ABSOLUTE MAN 0.21 K/mm3 (0.16-1.47); MONOCYTES PERCENT MAN 1 % (4-13); MYELOCYTE ABSOLUTE MAN 1.06 K/mm3 (0.00-0.00); MYELOCYTE PERCENT MAN 5 % (0-0); NEUTROPHILS ABSOLUTE MAN 19.39 K/mm3 (1.96-9.15); SEG NEUTROPHILS PERCENT MAN 90 % (41-73); TOTAL CELLS COUNTED 100
--- NOTE | 2021-08-14 05:43 | NUR ---
SHIFT SUMMAARY PT REMAINS INUBATED, VENT SETTINGS 26/300/8/45%. BILAT LUNGS HAVE INSPIRATORY AND EXPIRATORY WHEEZE. PT RECEIVED TWO DUONEB WITHOUT IMPROVEMENT. PT RECEIVING INSULIN GTT AT 6 UNITS/HR WITH Q1 CBG CHECKS. LEVOPHED AND PROPOFOL ARE ON STANDBY. PT REMAINS UNRESPONSIVE BUT DOES HAVE A GAG REFLEX. TUBE FEEDING INFUSING AT GOAL RATE. RODRÍGUEZ REMAINS IN PLACE WITH SHIFT OUTPUT OF 1700ML. WILL REPORT TO ONCOMING RN.
--- NOTE | 2021-08-14 07:15 | NUR ---
PT CARE ASSUMED AFTER AM REPORT. DYSCONJUGATE GAZE NOTED. MD INFORMED. PT NOT RESPNSIVE, NO GAG. INFORMED.
--- NOTE | 2021-08-14 17:59 | NUR ---
PT STABLE THROUGH THE DAY. NO SEDATION AND PT DOES NOT RESPOND TO PAIN OR OPEN EYES. EYES DYSCONGIGATE. CT NEGATIVE. STARTED ON HIGH SSI. FAMILY UPDATED.
[2021-08-15 04:51] LABS: Hematocrit 24.8 % (33.0-51.0); Hemoglobin 8.6 g/dL (11.5-16.0); Mean Corpuscular HGB 25.7 pg (26.0-34.0); Mean Corpuscular HGB Conc 34.7 g/dL (31.5-36.5); Mean Corpuscular Volume 74 fL (80-100); Mean Platelet Volume 11.7 fL (9.1-12.4); NRBC Auto 0.5 /100 WBC (0.0-0.2); Platelet Count 126 K/mm3 (150-400); RDW Coefficient Variation 15.3 % (11.7-14.2); RDW Standard Deviation 40.9 fL (35.1-46.3); Red Blood Cell Count 3.35 M/mm3 (3.80-5.20); White Blood Cell Count 21.92 K/mm3 (4.00-11.30)
[2021-08-15 05:14] LABS: BAND PERCENT MAN 11 % (0-8); BASOPHILS PERCENT MAN 0 % (0-2); EOSINOPHILS PERCENT MAN 0 % (0-6); LYMPHOCYTES ABSOLUTE MAN 0.65 K/mm3 (0.84-5.20); LYMPHOCYTES PERCENT MAN 3 % (21-46); MONOCYTES ABSOLUTE MAN 0.65 K/mm3 (0.16-1.47); MONOCYTES PERCENT MAN 3 % (4-13); MYELOCYTE ABSOLUTE MAN 0.65 K/mm3 (0.00-0.00); MYELOCYTE PERCENT MAN 3 % (0-0); NEUTROPHILS ABSOLUTE MAN 19.94 K/mm3 (1.96-9.15); SEG NEUTROPHILS PERCENT MAN 80 % (41-73); TOTAL CELLS COUNTED 100
[2021-08-15 05:23] LABS: Anion Gap 11 mmol/L (6-16); Blood Urea Nitrogen 85 mg/dL (8-24); Bun/Creatinine Ratio 40.5 (12.0-20.0); CO2, Blood 24 mmol/L (21-32); Calcium, Blood 6.6 mg/dL (8.5-10.1); Chloride, Blood 114 mmol/L (98-108); Glomerular Filtration Rate 25 (60-); Glucose, Blood 301 mg/dL (70-99); Phosphorus, Blood 3.1 mg/dL (2.5-4.9); Potassium, Blood 3.3 mmol/L (3.5-5.5); Sodium, Blood 149 mmol/L (136-145); Vancomycin, Random 19.3 ug/mL
--- NOTE | 2021-08-15 06:38 | NUR ---
SHIFT SUMMARY PT REMAINS INTUBATED, VENT SETTINGS 26/340/6/50%. THROUGHOUT SHIFT PT HAD MODERATE INCREASE IN THICK PORTER SECRETIONS. PT STILL HAS WHEEZES DESPITE DUONEB GIVEN BY RT. PT REMAINS UNRESPONSIVE. PUPILS ARE 4MM AND SLUGGISH. R EYE HAS UPWARD/OUTWARD GAZE. PT OCCASIONALLY COUGHS. PROPOFOL RESTARTED AT 0630 FOR COMFORT AT 10MCG/KG/MIN. TUBE FEEDING INFUSING AT GOAL RATE WITH MINIMAL RESIDUALS. BOWEL TONES REMAIN HYPOACTIVE. RODRÍGUEZ REMAINS IN PLACE, SHIFT OUTPUT OF 1650ML. CBGS REMAIN IN 300S. WILL REPORT TO ONCOMING RN.
--- NOTE | 2021-08-15 07:15 | NUR ---
PT CARE ASSUMED AFTER NIGHTSHIFT RN REPORT. PT INTUBATED, LIGHT SEDATION FOR VENT COMPLIANCE, NO GAG. EYES UPWARD GAZE, SLIGHTLY AWAY FROM MIDLINE. MD AWARE.
[2021-08-15 17:55] LABS: Bun/Creatinine Ratio 45.3 (12.0-20.0); Creatinine, Blood 1.61 mg/dL (0.40-1.00); Potassium, Blood 3.3 mmol/L (3.5-5.5)
--- NOTE | 2021-08-15 18:32 | NUR ---
AROUND 1500 PT GAZE MORE MIDLINE. GAG PRESENT. TACHYPNIC. TURNED ON PROPOFOL TO 35 FOR VENT SYNCHRONY. FEBRILE. ONE DOSE OF PEN TYLEONAL BROKE FEVER. FAMILY UPDATED
--- NOTE | 2021-08-15 20:00 | NUR ---
ASSUMED CARE OF PT AT 1915. REPORT RECEIVED. PT PRESENTS IN BED. INTUBATED. AC 26, Tv 340, PEEP 6, FIO2 6. PT MAINTAINS SAURATIONS > 90 PERCENT. HAS 101.5 TEMP. WILL REVIEW CHART AND PLAN OF CARE FOR THIS PT.
--- NOTE | 2021-08-16 | NUR ---
SPOKE WITH DR LEWIS CONCERNING PT'S FEVER NOT RESPONDING MUCH TO TYLENOL, AND ORDER RECEIVED FOR IBUPROFEN TO BE GIVEN WELL. PENDING RESULTS.
[2021-08-16 03:49] LABS: BASOPHILS ABSOLUTE AUTO 0.18 K/mm3 (0.00-0.23); BASOPHILS PERCENT AUTO 1 % (0-2); Hematocrit 27.1 % (33.0-51.0); Hemoglobin 9.1 g/dL (11.5-16.0); Mean Corpuscular HGB 25.4 pg (26.0-34.0); Mean Corpuscular HGB Conc 33.6 g/dL (31.5-36.5); Mean Corpuscular Volume 76 fL (80-100); NRBC ABSOLUTE 0.11 K/mm3 (0.00-0.02); NRBC Auto 0.4 /100 WBC (0.0-0.2); Platelet Count 119 K/mm3 (150-400); RDW Coefficient Variation 15.8 % (11.7-14.2); RDW Standard Deviation 43.4 fL (35.1-46.3); Red Blood Cell Count 3.58 M/mm3 (3.80-5.20); White Blood Cell Count 25.31 K/mm3 (4.00-11.30)
[2021-08-16 03:52] LABS: EOSINOPHILS ABSOLUTE AUTO 0.09 K/mm3 (0.00-0.68); EOSINOPHILS PERCENT AUTO 0 % (0-6); IMMATURE GRAN ABSOLUTE AUTO 3.44 K/mm3 (0.00-0.10); IMMATURE GRAN PERCENT AUTO 14 % (0-1); LYMPHOCYTES ABSOLUTE AUTO 0.93 K/mm3 (0.84-5.20); LYMPHOCYTES PERCENT AUTO 4 % (21-46); MONOCYTES ABSOLUTE AUTO 0.27 K/mm3 (0.16-1.47); MONOCYTES PERCENT AUTO 1 % (4-13); NEUTROPHILS PERCENT AUTO 81 % (41-73)
[2021-08-16 04:08] LABS: BAND PERCENT MAN 6 % (0-8); BASOPHILS PERCENT MAN 0 % (0-2); EOSINOPHILS ABSOLUTE MAN 0.25 K/mm3 (0.00-0.68); EOSINOPHILS PERCENT MAN 1 % (0-6); LYMPHOCYTES ABSOLUTE MAN 0.75 K/mm3 (0.84-5.20); LYMPHOCYTES PERCENT MAN 3 % (21-46); METAMYELOCYTE ABSOLUTE MAN 1.77 K/mm3 (0.00-0.00); METAMYELOCYTE PERCENT MAN 7 % (0-0); MONOCYTES PERCENT MAN 0 % (4-13); MYELOCYTE ABSOLUTE MAN 0.25 K/mm3 (0.00-0.00); MYELOCYTE PERCENT MAN 1 % (0-0); NEUTROPHILS ABSOLUTE MAN 22.27 K/mm3 (1.96-9.15); SEG NEUTROPHILS PERCENT MAN 82 % (41-73); TOTAL CELLS COUNTED 100
[2021-08-16 04:13] LABS: Anion Gap 5 mmol/L (6-16); Blood Urea Nitrogen 64 mg/dL (8-24); Bun/Creatinine Ratio 44.4 (12.0-20.0); CO2, Blood 28 mmol/L (21-32); Calcium, Blood 7.2 mg/dL (8.5-10.1); Chloride, Blood 121 mmol/L (98-108); Creatinine, Blood 1.44 mg/dL (0.40-1.00); Glomerular Filtration Rate 39 (60-); Glucose, Blood 257 mg/dL (70-99); Magnesium, Blood 1.6 mg/dL (1.6-2.4); Phosphorus, Blood 2.7 mg/dL (2.5-4.9); Potassium, Blood 3.1 mmol/L (3.5-5.5); Sodium, Blood 154 mmol/L (136-145); Vancomycin, Random 18.2 ug/mL
--- NOTE | 2021-08-16 06:30 | NUR ---
PT HAS MAINTAINED SATURATIONS > 90 PERCENT. FEVER REMAINS 101.5 TO 102.2. MINIMINAL RESIDUALS FROM OGT. WILL CONTINUE TO MONITOR PT, AND WILL REPORT OFF TO ONCOMING RN.
--- NOTE | 2021-08-16 07:15 | NUR ---
PT CARE ASSUMED AFTER STENCIL INSPECTOR RN REPORT. PT SEDATED. GAGS/COUGHS WHEN SUCTIONED DOES NOT OPEN EYES OR WITHDRAW. FEBRILE. ICE PACKS APPLIED TO ARMPITS AND GROIN.
--- NOTE | 2021-08-16 11:13 | NUR ---
FEBRILE DESPITE ICE PACKS, MEDICATION. APPLIED COOLING BLANKET SET TO 98.6. ALL SKIN COVERED TO PROTECT FROM BLANKET
--- NOTE | 2021-08-16 18:00 | NUR ---
PT FEBRILE THROUGHOUT DAY. AROUND 1700 FEVER FINALLY BROKE. PICC LINE TO LEFT ARM PER PICC NURSE. FAMILY UPDATED.
--- NOTE | 2021-08-16 18:26 | NUR ---
CENTRAL LINE REMOVED FROM RIGHT FEMORAL VEIN. PRESSURE FOR 10 MINUTES. CLOTTING PAD TO SITE, WICK 4X4 APPLIED AND COVERED WITH TRANSPARENT DRESSING. TIP SENT FOR CULTURE PER MD ORDER
--- NOTE | 2021-08-16 20:00 | NUR ---
ASSUMED CARE OF PT AT 1915. REPORT RECEIVED. PT PRESENTS IN BED. IS INTUBATED: AC/VC 26, Tv 340, 6, FIO2 60 PERCENT. PT MAINTAINS SATURATIONS > 90 PERCENT. PROPOFOL AT 40 MCG'S PER KG/MIN. PT HAS SOME COUGHING WITH VENT. INCREASE PROPOFOL TO 45 MCG'S/KG/MIN. PT HAVING BETTER VENT TOLERANCE. WILL REVIEW CHART AND PLAN OF CARE FOR THIS PT. PT AFEBRILE. HAVE STOPPED COOLING BLANKET. WILL MONITOR.
--- NOTE | 2021-08-16 23:34 | NUR ---
CALL FROM KYLE DAUGHTER OF PT THIS RN PROVIDES UPDATE TO DAUGHTER. DAUGHTER STATES SHE WILL CALLBACK IN THE AM.
--- NOTE | 2021-08-16 23:56 | NUR ---
PT MEDICATED ONCE WITH 2 MG ATIVAN FOR VENT TOLERANCE. THIS WAS VERY HELPFUL. PT REMAINS WITH ONLY LOW GRADE FEVER. WILL USE COOLING BLANKET IF NECESSARY.
[2021-08-17 04:42] LABS: BASOPHILS ABSOLUTE AUTO 0.19 K/mm3 (0.00-0.23); BASOPHILS PERCENT AUTO 1 % (0-2); Hemoglobin 9.8 g/dL (11.5-16.0); Mean Corpuscular HGB 25.9 pg (26.0-34.0); Mean Corpuscular HGB Conc 33.8 g/dL (31.5-36.5); Mean Corpuscular Volume 77 fL (80-100); Mean Platelet Volume 11.6 fL (9.1-12.4); NRBC ABSOLUTE 0.14 K/mm3 (0.00-0.02); NRBC Auto 0.5 /100 WBC (0.0-0.2); Platelet Count 131 K/mm3 (150-400); RDW Coefficient Variation 16.3 % (11.7-14.2); RDW Standard Deviation 45.1 fL (35.1-46.3); Red Blood Cell Count 3.79 M/mm3 (3.80-5.20); White Blood Cell Count 29.03 K/mm3 (4.00-11.30)
[2021-08-17 04:43] LABS: NEUTROPHILS PERCENT AUTO 86 % (41-73)
[2021-08-17 04:44] LABS: EOSINOPHILS ABSOLUTE AUTO 0.03 K/mm3 (0.00-0.68); EOSINOPHILS PERCENT AUTO 0 % (0-6); IMMATURE GRAN ABSOLUTE AUTO 2.37 K/mm3 (0.00-0.10); IMMATURE GRAN PERCENT AUTO 8 % (0-1); LYMPHOCYTES ABSOLUTE AUTO 1.12 K/mm3 (0.84-5.20); LYMPHOCYTES PERCENT AUTO 4 % (21-46); MONOCYTES ABSOLUTE AUTO 0.39 K/mm3 (0.16-1.47); MONOCYTES PERCENT AUTO 1 % (4-13); NEUTROPHILS ABSOLUTE AUTO 24.93 K/mm3 (1.96-9.15)
[2021-08-17 05:01] LABS: BAND PERCENT MAN 12 % (0-8); BASOPHILS ABSOLUTE MAN 0.29 K/mm3 (0.00-0.23); BASOPHILS PERCENT MAN 1 % (0-2); EOSINOPHILS PERCENT MAN 0 % (0-6); LYMPHOCYTES ABSOLUTE MAN 0.29 K/mm3 (0.84-5.20); LYMPHOCYTES PERCENT MAN 1 % (21-46); METAMYELOCYTE ABSOLUTE MAN 1.45 K/mm3 (0.00-0.00); METAMYELOCYTE PERCENT MAN 5 % (0-0); MONOCYTES ABSOLUTE MAN 0.29 K/mm3 (0.16-1.47); MONOCYTES PERCENT MAN 1 % (4-13); MYELOCYTE ABSOLUTE MAN 0.29 K/mm3 (0.00-0.00); MYELOCYTE PERCENT MAN 1 % (0-0); NEUTROPHILS ABSOLUTE MAN 26.41 K/mm3 (1.96-9.15); SEG NEUTROPHILS PERCENT MAN 79 % (41-73); TOTAL CELLS COUNTED 100
[2021-08-17 05:06] LABS: Anion Gap 4 mmol/L (6-16); Blood Urea Nitrogen 54 mg/dL (8-24); Bun/Creatinine Ratio 57.6 (12.0-20.0); CO2, Blood 29 mmol/L (21-32); Calcium, Blood 8.1 mg/dL (8.5-10.1); Chloride, Blood 125 mmol/L (98-108); Creatinine, Blood 0.94 mg/dL (0.40-1.00); Glomerular Filtration Rate >60 (60-); Glucose, Blood 375 mg/dL (70-99); Magnesium, Blood 1.8 mg/dL (1.6-2.4); Sodium, Blood 158 mmol/L (136-145); Vancomycin, Random 15.2 ug/mL
--- NOTE | 2021-08-17 06:29 | NUR ---
PT CONTINUES WITH ROCURONIUM FOR PARALYSIS. HAVE BEEN ABLE TO BRING RATE TO 2 MCG/KG/MIN. PT HAS MAINTAINED > 90 PERCENT SATURATIONS. WILL CONTINUE TO MONITOR PT, AND WILL REPORT OFF TO ONCOMING RN.
--- NOTE | 2021-08-17 06:30 | NUR ---
PT HAS BLEEDING FROM PICC LINE INSERTION. DRESSING CHANGED AND BIO-PATCH APPLIED. MINIMAL BLEEDING AFTER DRESSING CHANGED. PT CONTINUES MAINTAINING OXYGEN SATURATIONS > 90 PERCENT. TURNS Q 2 HOURS. WILL CONTINUE TO MONITOR, AND WILL REPORT OFF TO ONCOMING RN.
--- NOTE | 2021-08-17 08:42 | NUR ---
ASSUMED PT CARE. PT INTUBATED/SEDATED. PUPPILS 4 BILAT, SLUGGISH. NO COUGH OR GAG PRESENT. PROP AT 45 MCG/KG/HR. VENT SETTINGS AC VC 26, 340, PEEP 6, FI02 65%. OGT PLACEMENT CONFIRMED WITH AIR AULSCATATION, DAILY XR. TF AT 35ML/HR. FC IN PLACE, CL URINE. TEMP 100.9, PT TO BE STARTED ON VANCO THIS AM IN ADDITION TO OTHER IVABX. K BEING REPLACED.
[2021-08-17 14:26] LABS: Anion Gap 4 mmol/L (6-16); Blood Urea Nitrogen 51 mg/dL (8-24); Bun/Creatinine Ratio 54.9 (12.0-20.0); CO2, Blood 28 mmol/L (21-32); Chloride, Blood 126 mmol/L (98-108); Creatinine, Blood 0.93 mg/dL (0.40-1.00); Glomerular Filtration Rate >60 (60-); Glucose, Blood 409 mg/dL (70-99); Potassium, Blood 3.2 mmol/L (3.5-5.5); Sodium, Blood 158 mmol/L (136-145)
--- NOTE | 2021-08-17 14:54 | NUR ---
1400: DISCUSSED WITH MD BARGER THAT D5@100 WAS HELD UNTIL IVABX FINISHED DUE TO LIMITED PORT ACCESS. DISCUSSED CONCERN OF STARTING D5 PT BG HAVE BEEN ELEVATED IN 300S THIS SHIFT AND RISK OF INCREASING HYPERGLYCEMIA WHILE PT HAS INFECTION. MD BARGER WRITING NEW ORDERS FOR INCREASED BG COVERAGE AND FURTHER LAB WORK UP. K TO BE REPLACED.
--- NOTE | 2021-08-17 18:13 | NUR ---
MAJOR EVENTS THIS SHIFT: IV ABX CHANGED FOR COVERAGE, T MAX 101, COOLING BLANKET AND COOLING MEASURES BEING USED, TEMP 99.5 AT END OF SHIFT. PT STARTED ON D5 FOR HYPERNATREMIA, DISCUSSED WITH MD BARGER CONCERNS FOR HYPERGLYCEMIA AND SEPSIS MANAGEMENT, INSULIN ADJUSTED. REPEAT LABS TO BE DRAWN AT 1999. K BEING REPLACED, RESP CULTURE SENT. VENT SETTINGS AT END OF SHIFT 26, 340, 6, 60%. PROP AT 40. ATIVAN 2MG GIVEN X 1.
--- NOTE | 2021-08-17 19:45 | NUR ---
PATIENT INTUBATED AND SEDATED WITH ETT IN PLACE WITH VENT AC VC+ 26, TV 340, PEEP 6, FIO2 65% BIOX CONTINUES TO DROP TO 86% FIO2 INCREASED TO 75% SUCTIONING SMALL AMT CLEAR SECRETIONS ETT. SUCTIONING MOD AMT OF WHITE CREAMY SECRETIONS VIA ORAL. COUGH AND GRIMACE AND RESP RATE INTO HIGH 30'S WITH STIMULI. PROPOFOL 40 MCG FOR SEDATION. OG IN PLACE WITH PIVOT AT GOAL RATE 35 CC/HR WITH 150 CC WATER Q4 HR. GENERALIZED EDEMA, SCLERAL EDEMA SLIGHTLY YELLOW.
--- NOTE | 2021-08-17 21:04 | NUR ---
DOCTOR CHARBEL NOTIFIED OF REPEAT SODIUM LEVEL, D5W INCREASED TO 125 CC/HR
[2021-08-18 04:28] LABS: BASOPHILS ABSOLUTE AUTO 0.16 K/mm3 (0.00-0.23); BASOPHILS PERCENT AUTO 1 % (0-2); Hematocrit 27.5 % (33.0-51.0); Hemoglobin 9.1 g/dL (11.5-16.0); Mean Corpuscular HGB 25.4 pg (26.0-34.0); Mean Corpuscular HGB Conc 33.1 g/dL (31.5-36.5); Mean Corpuscular Volume 77 fL (80-100); Mean Platelet Volume 12.5 fL (9.1-12.4); NRBC ABSOLUTE 0.18 K/mm3 (0.00-0.02); NRBC Auto 0.6 /100 WBC (0.0-0.2); Platelet Count 155 K/mm3 (150-400); RDW Coefficient Variation 17.1 % (11.7-14.2); RDW Standard Deviation 47.1 fL (35.1-46.3); Red Blood Cell Count 3.58 M/mm3 (3.80-5.20); White Blood Cell Count 29.85 K/mm3 (4.00-11.30)
[2021-08-18 04:35] LABS: EOSINOPHILS ABSOLUTE AUTO 0.21 K/mm3 (0.00-0.68); EOSINOPHILS PERCENT AUTO 1 % (0-6); IMMATURE GRAN ABSOLUTE AUTO 1.86 K/mm3 (0.00-0.10); IMMATURE GRAN PERCENT AUTO 6 % (0-1); LYMPHOCYTES ABSOLUTE AUTO 1.11 K/mm3 (0.84-5.20); LYMPHOCYTES PERCENT AUTO 4 % (21-46); MONOCYTES ABSOLUTE AUTO 0.38 K/mm3 (0.16-1.47); MONOCYTES PERCENT AUTO 1 % (4-13); NEUTROPHILS ABSOLUTE AUTO 26.13 K/mm3 (1.96-9.15); NEUTROPHILS PERCENT AUTO 88 % (41-73)
[2021-08-18 04:49] LABS: Anion Gap 4 mmol/L (6-16); Blood Urea Nitrogen 44 mg/dL (8-24); Bun/Creatinine Ratio 55.6 (12.0-20.0); CO2, Blood 27 mmol/L (21-32); Calcium, Blood 7.7 mg/dL (8.5-10.1); Chloride, Blood 124 mmol/L (98-108); Creatinine, Blood 0.79 mg/dL (0.40-1.00); Glomerular Filtration Rate >60 (60-); Glucose, Blood 395 mg/dL (70-99); Potassium, Blood 3.2 mmol/L (3.5-5.5); Sodium, Blood 155 mmol/L (136-145); Vancomycin, Random 14.2 ug/mL
--- NOTE | 2021-08-18 06:43 | NUR ---
SUMMARY PATIENT REMAINS INTUBATED AND SEDATED. PROPOFOL 40 MCG. COUGH AND GRIMACE WITH ORAL CARE. VENT AC VC+ 26, TV 340, PEEP 6, FIO2 75% SLIGHT BLOODY NOSE TO LEFT NARE SELF RESOLVING. OG IN PLACE WITH TUBE FEEDING PIVOT 1.5 AT GOAL RATE OF 35 CC/HR WITH WATER 150 CC Q4HR, MIN RESIDUALS T/O NIGHT.
--- NOTE | 2021-08-18 10:28 | NUR ---
AM ASSESSMENT: PT REMAINS INTUBATED, SEDATED, AND RESTRAINED. PT GRIMACES TO PAINFUL STIMULI. NOT FOLLOWING COMMANDS AND NO SPONTANEOUS EYE OPENING OR MOVEMENT OF EXTREMITIES NOTED. PROPOFOL DRIP @ 40 MCG/KG/MIN. PUPILS 5 MM AND ERL-SCLERAL EDEMA NOTED. PT NECK IS SWOLLEN. POOR HAS ONLY A FEW TEETH AND THE ONES THAT SHE HAS ARE BROKEN AND ROTTEN. ORAL SUCTION PRODUCTIVE OF LARGE AMOUNT OF THICK PURULENT/MALODOROUS SECRETIONS. TEMP 101.3-TYLENOL GIVEN AND COOLING MEASURES INITIATED. PT WBC CONTINUE TO BE ELEVATED THIS AM. ECG SHOWS SR WITH RATE 70-90'S. BP STABLE. LUNGS COARSE AND WHEEZY THROUGH OUT. VENT AC/VC+ 26, TV 340, PEEP 10 , FIO2 75% - SATS>90%. PT TOLERATING OGTF WELL. RODRÍGUEZ TO BSD WITH ADEQUATE AMOUNT OF DARK, YELLOW URINE TO BSD. PT SPOUSE UPDATED TO CURRENT STATUS AND PLAN OF CARE.
--- NOTE | 2021-08-18 11:36 | NUR ---
PT APPEARS AGITATED-RR 30'S AND SATS 85% ON FIO2 75% MED WITH ATIVAN 2 MG IVP X 1. LUNGS REMAIN COARSE AND WHEEZY THROUGH OUT, YET NO ETT SECRETIONS WITH SUCTIONING. CBG TRENDING 350+ COVERED PER SLIDING SCALE-SEE EMAR.
--- NOTE | 2021-08-18 14:09 | NUR ---
SATS DROPPED TO 85% ON FIO2 75%-TITRATED FIO2 TO 85% TO KEEP SATS >90%-PEE REMAINS AT 10. OGT FREE H20 INCREASED TO 200 CC EVERY 4 HOURS FOR HYPERNATREMIA. WILL RECHECK CHEMISTRIES DENIS @ [address] FIGUEREDO.
--- NOTE | 2021-08-18 14:15 | NUR ---
PT DAUGHTER KYLE UPDATED TO CURRENT STATUS AND PLAN OF CARE. PT DAUGHTER VERBALIZED CONCERN THAT PT SPOUSE IS "A DRUG USER AND ALCOHOLIC AND HE IS UNABLE TO UNDERSTAND WHAT IS GOING ON OR MAKE DECISIONS FOR MY MOM." PALLIATIVE CARE CONSULTED.
--- NOTE | 2021-08-18 15:15 | NUR ---
FIRST DOSE OF ANTIFUNGAL INITIATED. PUPIL NOW UNEQUAL AND NONRESPONSIVE TO LIGHT. RIGHT PUPIL IS 3MM AND LEFT PUPIL IS 6 MM. LEFT EYE WITH MORE PROFOUND SCLERAL EDEMA NOTED. DR. ANDRADE MADE AWARE. DR. HOWARD AND DR. WASHINGTON CONSULTED.
--- NOTE | 2021-08-18 16:00 | NUR ---
DR. HOWARD HERE FOR CONSULT. MALCOM RAMIREZ RN ASSISTED WITH FUNGAL CULTURE OF NARES.
--- NOTE | 2021-08-18 18:15 | NUR ---
DR. WASHINGTON HERE TO SEE PT. ENDOSCOPY OF NASAL PASSAGES DONE AND PHOTOS TAKEN VERBAL ORDER GIVEN FOR AFRIN 2 SPRAYS TO EACH NARE-SEE EMAR. PLAN TO BIOPSY. DR. WASHINGTON SPEAKING WITH PATHOLOGY TO CONFIRM HOW TO PRESERVE THE SPECIMEN.
--- NOTE | 2021-08-18 18:24 | NUR ---
Spoke to pt's daughter Sofi by phone to update her this evening. Reported that pt having CT scan this evening, as her pupils are unequal. Also attempted to call pt's , however after several rings, it went to voicemail and the voicemail is full.
--- NOTE | 2021-08-18 19:45 | NUR ---
PATIENT INTUBATED AND SEDATED WITH PROPOFOL 40 MCG, SLIGHT COUGH WITH DEEP SUCTION. NO MOVEMENT SEEN IN EXTREMITIES. RIGHT EYE GAZING UP WITH SLUGGISH PUPIL REACTION. LEFT EYE LOOKING FORWARD PUPIL NOT REACTIVE. VENT AC VC+ 26, TV 340, PEEP 10, FIO2 85% SCOPE COMPLETED BY DOCTOR WASHINGTON, ELAYNE AMT BLOODY ORAL SECRETIONS. BIOPSY SENT TO LAB. LUNG SOUNDS COARSE WHEEZES T/O. PLAN FOR CT HEAD AND NECK TONIGHT. OG IN PLACE AND CLAMPED FOR CT.
[2021-08-18 20:43] LABS: Alanine Aminotransfer (ALT/SGP 210 U/L (12-78); Albumin, Blood 1.3 g/dL (3.4-5.0); Albumin/Globulin Ratio 0.3 (0.8-1.8); Alk Phos 307 U/L (50-136); Anion Gap 8 mmol/L (6-16); Aspartate Aminotrans (AST/SGOT 110 U/L (12-37); Bilirubin, Total 0.6 mg/dL (0.1-1.0); Blood Urea Nitrogen 41 mg/dL (8-24); Bun/Creatinine Ratio 54.4 (12.0-20.0); CO2, Blood 29 mmol/L (21-32); Calcium, Blood 7.7 mg/dL (8.5-10.1); Chloride, Blood 120 mmol/L (98-108); Creatinine, Blood 0.75 mg/dL (0.40-1.00); Globulin, Blood 4.9 g/dL (2.2-4.0); Glomerular Filtration Rate >60 (60-); Glucose, Blood 389 mg/dL (70-99); Potassium, Blood 3.1 mmol/L (3.5-5.5); Sodium, Blood 157 mmol/L (136-145); Total Protein, Blood 6.2 g/dL (6.4-8.2)
--- NOTE | 2021-08-18 21:45 | NUR ---
CT COMPLETE. DOCTOR ANDRADE CALLED WITH LAB RESULTS AND GIVEN UPDATE. SEE NEW ORDERS
[2021-08-19 04:44] LABS: Hematocrit 26.7 % (33.0-51.0); Hemoglobin 8.9 g/dL (11.5-16.0); Mean Corpuscular HGB 25.9 pg (26.0-34.0); Mean Corpuscular HGB Conc 33.3 g/dL (31.5-36.5); Mean Corpuscular Volume 78 fL (80-100); NRBC ABSOLUTE 0.18 K/mm3 (0.00-0.02); NRBC Auto 0.5 /100 WBC (0.0-0.2); Platelet Count 120 K/mm3 (150-400); RDW Coefficient Variation 17.7 % (11.7-14.2); RDW Standard Deviation 49.5 fL (35.1-46.3); Red Blood Cell Count 3.44 M/mm3 (3.80-5.20); White Blood Cell Count 32.88 K/mm3 (4.00-11.30)
--- NOTE | 2021-08-19 04:45 | NUR ---
PATIENT UNRESPONSIVE TO STIMULI. BOTH EYES FACING FORWARD LEFT PUPIL LARGE AND NOT RESPONDING TO LIGHT. RIGHT EYE 4 AND NOT RESPONDING TO LIGHT. BILAT WRIST RESTRAINTS REMAIN OFF. RESP CONTINUE IN THE 30'S PROPOFOL TITRATED TO 30 MCG
[2021-08-19 04:48] LABS: Mean Platelet Volume 11.6 fL (9.1-12.4)
[2021-08-19 05:15] LABS: Albumin, Blood 1.3 g/dL (3.4-5.0); Anion Gap 7 mmol/L (6-16); Blood Urea Nitrogen 41 mg/dL (8-24); CO2, Blood 26 mmol/L (21-32); Calcium, Blood 7.7 mg/dL (8.5-10.1); Chloride, Blood 122 mmol/L (98-108); Creatinine, Blood 0.75 mg/dL (0.40-1.00); Glomerular Filtration Rate >60 (60-); Glucose, Blood 253 mg/dL (70-99); Phosphorus, Blood 2.3 mg/dL (2.5-4.9); Potassium, Blood 3.5 mmol/L (3.5-5.5); Sodium, Blood 155 mmol/L (136-145)
[2021-08-19 05:42] LABS: BAND PERCENT MAN 13 % (0-8); BASOPHILS PERCENT MAN 0 % (0-2); EOSINOPHILS ABSOLUTE MAN 0.32 K/mm3 (0.00-0.68); EOSINOPHILS PERCENT MAN 1 % (0-6); LYMPHOCYTES ABSOLUTE MAN 0.65 K/mm3 (0.84-5.20); LYMPHOCYTES PERCENT MAN 2 % (21-46); METAMYELOCYTE ABSOLUTE MAN 0.32 K/mm3 (0.00-0.00); METAMYELOCYTE PERCENT MAN 1 % (0-0); MONOCYTES ABSOLUTE MAN 0.65 K/mm3 (0.16-1.47); MONOCYTES PERCENT MAN 2 % (4-13); SEG NEUTROPHILS PERCENT MAN 81 % (41-73); TOTAL CELLS COUNTED 100
--- NOTE | 2021-08-19 06:15 | NUR ---
SUMMARY PATIENT REMAINS INTUBATED AND SEDATED WITH PROPOFOL TITRATED DOWN TO 20 MCG RESP REMAIN 30'S, BUT PATIENT CONTINUES TO BE UNRESPONSIVE TO STIMULI, NO MOVEMENT SEEN IN EXTREMITIES. LEFT PUPIL 8 MM AND UNRESPONSIVE RIGHT PUPIL 5 MM AND UNRESPONSIVE. SCLERAL EDEMA CONTINUES LEFT EYE MORE SWOLLEN THAN RIGHT. VENT AC VC+ 26, TV 340, PEEP 10, FIO2 85% CONTINUE TO HAVE NO SECRETIONS VIA ETT, ORAL SECRETIONS BLOOD TINGED. LUNG SOUNDS COARSE WHEEZES T/O. OG IN PLACE WITH PIVOT 1.5 AT GOAL RATE OF 20 CC/HR WITH WATER 200 CC Q4HR. D5W CONTINUES UNTIL THIS LITER IS COMPLETE. FEVER 100.2 CONTINUES MEDICATED TWICE WITH TYLENOL. INSULIN DRIP STARTED DUE TO CONTINUED HIGH GLUCOSE, INSULIN TITRATED NOW AT 9 UNITS/HR. FIRST DOSE OF AMPHOTERICIN GIVEN LAST NIGHT, PATIENT PARVEEN WELL. PATIENTS GIVEN UPDATE ON PATIENT BEING TREATED FOR FUNGAL INFECTION, AND BEING LESS RESPONSIVE, APPEARS TO HAVE DIFFICULTY UNDERSTANDING PROGRESSION OF ILLNESS.
--- NOTE | 2021-08-19 11:23 | NUR ---
Received a call from pt's daughter Sofi this morning. She states she heard a doctor had called pt's Jose this morning, and told him the patient "has mold in her nose, and an 80% chance of dying". I did inform her it was discovered that the pt does have a fungal infection in her sinuses and, at this time, the pt's chance of survival does appear slim. I also informed her there is a possibility of her mom being transferred to another hospital if they feel they are better equipped to manage her care. Sofi is tearful during this call, and stated several times she is very appreciative of the updates. I let her know I would continue to keep her updated.
--- NOTE | 2021-08-19 11:28 | NUR ---
Ethics Update: Code status discussion ensued. In light of the medically unstable condition of the principal, her disease severity, and her unfortunately bleak clinical prognosis, it is thought that a less agressive code status would be a more ethically and medically appropriate. The principal is on mechanical airway support, exhibits no spontaneous movement, shows no response to noxious stimuli, and demonstrates no gag reflex. She has elevated O2 needs, and a significant, unresolved and uncontrolled infection, but is otherwise stationary. With Dr Caballero having her actively evaluated for potential transfer, the code discussion will be temporarily paused. If it turns out that the principal fails to satisfy tranfer criteria, then I would recommend that we titrate sedation down, conduct and EEG, and perform a sequential organ failure assessment to ascertain the principals mortality index and neurologic status. With this information available, we can then re-engage the code status question, and pursue a less aggressive approach with the collabroation and support of the family. Thank you for this consult. Ruben Sanchez ThD
[2021-08-19 12:47] LABS: PCO2 Arterial 46.9 mmHg (35-45); PO2 Arterial 67.6 mmHg (80-100); pH Blood Arterial 7.33 (7.35-7.45)
--- NOTE | 2021-08-19 18:56 | NUR ---
SUMMARY PT INTUBATED. SEDATED UNTIL THIS AFTERNOON WHEN PROPOFOL WAS TURNED OFF FOR EEG. PT DOES NOT RESPOND TO NOXIOUS STIMULUS. PUPILS UNEQUAL AND NON REACTIVE. NO SPONTANEOUS MOVEMENT. RARELY A COUGH WITH DEEP SUCTIONING. PT HAS FUNGAL INFECTION OF NARES. WILL BE TRANSFERED TO [facility] WHEN BED AVAILABLE. VITALS STABLE T/O THE SHIFT. REMAINS ON INSULIN GTT AND D5 FOR HIGH SODIUM LEVEL. DR. ANDRADE UPDATED FAMILY. AWAITING BED AT [facility].
[2021-08-19 20:19] LABS: Albumin, Blood 1.2 g/dL (3.4-5.0); Anion Gap 7 mmol/L (6-16); Blood Urea Nitrogen 42 mg/dL (8-24); Bun/Creatinine Ratio 45.6 (12.0-20.0); CO2, Blood 26 mmol/L (21-32); Calcium, Blood 8.1 mg/dL (8.5-10.1); Chloride, Blood 121 mmol/L (98-108); Creatinine, Blood 0.92 mg/dL (0.40-1.00); Glomerular Filtration Rate >60 (60-); Glucose, Blood 190 mg/dL (70-99); Potassium, Blood 3.7 mmol/L (3.5-5.5); Sodium, Blood 154 mmol/L (136-145)
--- NOTE | 2021-08-19 21:45 | NUR ---
REPORT CALLED TO [facility] FOR TRANSFER TO [facility] 8C RM 5. AWAITING TRANSPORT TEAM. DAUGHTER KYLE NOTIFIED REGARDING ROOM ASSIGNMENT. ATTEMPT TO CALL [facility] PATIENTS NOT ANSWERING PHONE.
--- NOTE | 2021-08-19 22:33 | NUR ---
PATIENTS DAUGHTERS KYLE AND YISavannah IN TO SEE PATIENT. MULTIPLE ATTEMPTS TO CALL PATIENTS [facility] CALL GOING TO [facility]ICE MAIL WHICH IS FULL. BELONGINGS WHICH INCLUDE RANDOM JEWELRY AND CELL PHONE SENT HOME WITH PATIENTS DAUGHTER KYLE.
--- NOTE | 2021-08-19 23:45 | NUR ---
PATIENT RESP 36, TEMP 102.2 TYLENOL AND ATIVAN GIVEN
--- NOTE | 2021-08-20 01:25 | NUR ---
TRANSPORT HERE, PATIENT TRANSFERRING WITH INSULIN AND D5W INFUSING. [facility] CHARGE NURSE [facility]IFIED
== END 2021-08-20 01:17 | disposition short-term general hospital (02) | DRG 870 ==
LOC: ER 13:28 → ICUE 20:50 → SURS 20:50 → ICUE 08-11 10:28
PROVIDERS: Family Medicine; Internal Medicine; Internal Medicine Critical Care Medicine; Pharmacist; Student in an Organized Health Care Education/Training Program; ADMIT Internal Medicine
PROC: 8E0ZXY6 Isolation (ICD-10-PCS; 2021-08-10)
PROC: 3E0333Z Introduction of Anti-inflammatory into Peripheral Vein, Percutaneous Approach (ICD-10-PCS; 2021-08-10)
PROC: 3E033XZ Introduction of Vasopressor into Peripheral Vein, Percutaneous Approach (ICD-10-PCS; 2021-08-10)
PROC: 06HY33Z Insertion of Infusion Device into Lower Vein, Percutaneous Approach (ICD-10-PCS; 2021-08-10)
PROC: 0BH18EZ Insertion of Endotracheal Airway into Trachea, Via Natural or Artificial Opening Endoscopic (ICD-10-PCS; principal; 2021-08-11)
PROC: 5A1955Z Respiratory Ventilation, Greater than 96 Consecutive Hours (ICD-10-PCS; 2021-08-11)
PROC: 5A09357 Assistance with Respiratory Ventilation, Less than 24 Consecutive Hours, Continuous Positive Airway Pressure (ICD-10-PCS; 2021-08-11)
PROC: 02HV33Z Insertion of Infusion Device into Superior Vena Cava, Percutaneous Approach (ICD-10-PCS; 2021-08-16)
PROC: 09BM8ZX Excision of Nasal Septum, Via Natural or Artificial Opening Endoscopic, Diagnostic (ICD-10-PCS; 2021-08-18)
DX: A41.9 Sepsis, unspecified organism (principal); E11.10 Type 2 diabetes mellitus with ketoacidosis without coma; R65.21 Severe sepsis with septic shock; J96.01 Acute respiratory failure with hypoxia; J12.82 Pneumonia due to coronavirus disease 2019; G92 Toxic encephalopathy; U07.1 COVID-19; N17.0 Acute kidney failure with tubular necrosis; L03.211 Cellulitis of face; E87.0 Hyperosmolality and hypernatremia; B48.8 Other specified mycoses; I10 Essential (primary) hypertension; E11.9 Type 2 diabetes mellitus without complications; F43.10 Post-traumatic stress disorder, unspecified; F31.9 Bipolar disorder, unspecified; F17.210 Nicotine dependence, cigarettes, uncomplicated; F60.3 Borderline personality disorder; F15.10 Other stimulant abuse, uncomplicated; E86.0 Dehydration; E87.6 Hypokalemia; E83.52 Hypercalcemia; D64.9 Anemia, unspecified; G43.909 Migraine, unspecified, not intractable, without status migrainosus; K04.7 Periapical abscess without sinus; F42.9 Obsessive-compulsive disorder, unspecified; J45.909 Unspecified asthma, uncomplicated; Z87.442 Personal history of urinary calculi; Z90.49 Acquired absence of other specified parts of digestive tract; Z90.710 Acquired absence of both cervix and uterus; Z98.890 Other specified postprocedural states; Z88.8 Allergy status to other drugs, medicaments and biological substances; Z79.4 Long term (current) use of insulin; Z79.2 Long term (current) use of antibiotics; Z79.899 Other long term (current) drug therapy; Z78.1 Physical restraint status
CPT/HCPCS: 31500; 36415; 36569; 36600; 51702; 70450; 70470; 70486; 70491; 71045; 71260; 76536; 76770; 80048; 80053; 80069; 80202; 81001; 82010; 82140; 82330; 82550; 82803; 82947; 83605; 83735; 84100; 84132; 84295; 84443; 84478; 84703; 85025; 87040; 87070; 87086; 87205; 87210; 88108; 88305; 88312; 93005; 93010; 93306; 94002; 94003; 94640; 95819; 96361-59; 96365-59; 96366-59; 96367-59; 96372-59; 96375-59; 99285-25; A9270; C1751; C9113; G0480; J0289; J0295; J0610; J1100; J1650; J1815; J1940; J2060; J2185; J2543; J2704; J2930; J3370; J3465; J3475; J3480; J7030; J7042; J7050; J7060; J7070; J7120; Q9967; U0004